=== PATIENT | female | born 2000 | race Caucasian/White ===

== ENCOUNTER 2022-05-25 18:36 | Emergency (ER) | payer OTHER ==
[~2022-05-25] VITALS: Ht 165.1 cm; Wt 86.2 kg
[2022-05-25 19:40] VITALS: BP 125/76
--- NOTE | 2022-05-25 19:43 | NUR ---
TO LOBBY A/W BED AMBULATORY
[2022-05-25] MEDS ORDERED: PENI500T20 PO (20:34)
[2022-05-25] MEDS ORDERED: HYDROcodone/APAP 5/325 MG 1 TAB TAB PO ONE (20:35)
--- NOTE | 2022-05-25 21:03 | NUR ---
Patient discharged with v/s stable. Written and verbal after care instructions given and explained. Patient alert, oriented and verbalized understanding of instructions. Ambulatory with steady gait. All questions addressed prior to discharge. ID band removed. Patient advised to follow up with PMD. Rx of PCN V POTASSIUM given. Patient educated on indication of medication including possible reaction and side effects. Opportunity to ask questions provided and answered.
== END 2022-05-25 21:03 | disposition home or self-care (01) ==
LOC: MED 18:36
DX: R68.84 Jaw pain (principal)
CPT/HCPCS: 99283

== ENCOUNTER 2022-08-07 14:28 | Emergency (ER) | payer OTHER ==
[~2022-08-07] VITALS: Ht 167.6 cm; Wt 72.6 kg
[~2022-08-07 14:28] MED LIST: PENI500T20 PO
[2022-08-07 14:50] VITALS: BP 130/92
--- NOTE | 2022-08-07 14:55 | NUR ---
PT AMB TO BED 6
--- NOTE | 2022-08-07 14:59 | NUR ---
KOBE LUDWIG EVALUATING PATIENT AT BEDSIDE.
--- NOTE | 2022-08-07 15:00 | NUR ---
21YO FEMALE PT C/O N/V-blood X3DAYS. REPORTS MILD EPIGASTRIC SORENESS AND WEAKNESS. ABD NON TENDER TO TOUCH OR DISTENDED. DENIES TAKING MEDICATION, DIET CHANGES, DIARRHEA, CONSTIPATION , FEVER OR CHILLS. PT AAOX4, HOB POSITIONED PER COMFORT. HX:DENIES NKA
[2022-08-07] MEDS ORDERED: METOCLOPRAMIDE 10 MG TAB PO ONE (15:15)
[2022-08-07 15:28] LABS: APPEARANCE,URINE CLEAR (CLEAR); BILIRUBIN,URINE NEGATIVE (NEGATIVE); BLOOD, URINE NEGATIVE (NEGATIVE); COLOR,URINE YELLOW (YELLOW); LEUKOCYTE ESTERASE ,URINE NEGATIVE (NEGATIVE); NITRITE, URINE NEGATIVE (NEGATIVE); PH,URINE 7.5 (5.0-9.0); UGLUCOSE NEGATIVE (NEGATIVE)
[2022-08-07] MEDS ORDERED: ACET-10509 PO (15:56)
[2022-08-07] MEDS ORDERED: ONDA-188 PO (15:56)
[2022-08-07] MEDS ORDERED: FAMO-90 PO (15:58)
[2022-08-07] MEDS ORDERED: ALUMINUM HYD/MAG/SIMETHICONE 30 ML UDC PO ONE (16:20)
[2022-08-07 16:34] LABS: BASOPHILS % (AUTO) 0.2 % (0.0-2.0); EOSINOPHILS % (AUTO) 0.3 % (0.0-4.0); HEMATOCRIT 42.2 % (36-48); HEMOGLOBIN 13.9 g/dL (12.0-16.0); LYMPHOCYTES # (AUTO) 2.1 K/uL (2.5-16.5); LYMPHOCYTES % (AUTO) 15.2 % (20.5-51.1); MEAN CORPUSCULAR HEMOGLOBIN 27 pg (27-31); MEAN CORPUSCULAR HGB CONC 33 g/dL (33-37); MEAN CORPUSCULAR VOLUME 81.6 fL (80-94); MONOCYTES # (AUTO) 0.4 K/uL (0.8-1.0); MONOCYTES % (AUTO) 3.2 % (1.7-9.3); NEUTROPHILS # (AUTO) 11.1 K/uL (1.8-7.7); NEUTROPHILS % (AUTO) 81.1 % (42.2-75.2); PLATELET COUNT (AUTO) 305 K/uL (140-450); RED BLOOD CELL COUNT(AUTO) 5.18 MIL/uL (4.20-5.40); RED CELL DISTRIBUTION WIDTH 13.5 % (11.6-13.7); WHITE BLOOD COUNT (AUTO) 13.7 K/uL (4.8-10.8)
[2022-08-07 16:58] LABS: ALBUMIN 4.5 g/dL (3.4-5.0); ANION GAP 11.9 (8-16); CARBON DIOXIDE 31.5 mmol/L (21-32); CREATININE 0.7 mg/dL (0.6-1.3); POTASSIUM 4.4 mmol/L (3.5-5.1); TOTAL BILIRUBIN 0.3 mg/dL (0.0-1.0)
[2022-08-07 17:04] VITALS: BP 128/88
[2022-08-07] MEDS ORDERED: ALUM355S59 PO (17:09)
--- NOTE | 2022-08-07 17:30 | NUR ---
Patient discharged with v/s stable. Written and verbal after care instructions FOR GASTRITIS given and explained. Patient alert, oriented and verbalized understanding of instructions. Ambulatory with steady gait. All questions addressed prior to discharge. ID band removed. Patient advised to follow up with PMD. Rx of TYLENOL XTRA STRENGTH, MAALOX AND ZOFRAN ODT. given. Opportunity to ask questions provided and answered.
--- NOTE | 2022-08-07 17:31 | NUR ---
The patient's care was reviewed and supervised by Sera Gibson, RN, RN.
== END 2022-08-07 17:30 | disposition home or self-care (01) ==
LOC: MED 14:28
DX: K52.9 Noninfective gastroenteritis and colitis, unspecified (principal); F12.90 Cannabis use, unspecified, uncomplicated; Z98.890 Other specified postprocedural states; Z79.899 Other long term (current) drug therapy; Z79.2 Long term (current) use of antibiotics
CPT/HCPCS: 36415; 80053; 81003; 81025; 85025; 99285; J8597; Q0163